=== PATIENT | female | born 1945 | race Two or more races ===

== ENCOUNTER 2018-08-14 16:14 | Inpatient (IN) | payer OTHER ==
[~2018-08-14] VITALS: Ht 154.9 cm; Wt 78.0 kg
[2018-08-14 16:43] LABS: BASOPHILS # (AUTO) 0.2 /CMM (0.0-0.2); BASOPHILS % (AUTO) 1.6 % (0.0-2.0); EOSINOPHILS % (AUTO) 2.9 % (0.0-6.0); HEMATOCRIT 31 % (33-45); HEMOGLOBIN 10.1 g/dL (11.5-14.8); LYMPHOCYTES # (AUTO) 3.5 /CMM (0.8-4.8); LYMPHOCYTES % (AUTO) 23.2 % (20.0-44.0); MEAN CORPUSCULAR HGB CONC 32 g/dl (31.0-36.0); MEAN CORPUSCULAR VOLUME 98 fL (82-100); MONOCYTES # (AUTO) 1.2 /CMM (0.1-1.30); MONOCYTES % (AUTO) 7.9 % (2.0-12.0); NEUTROPHILS # (AUTO) 9.6 /CMM (1.8-8.9); NEUTROPHILS % (AUTO) 64.4 % (43.0-81.0); PLATELET COUNT (AUTO) 137 /CMM (150-450); RED BLOOD CELL COUNT(AUTO) 3.22 MIL/uL (4.0-5.2); WHITE BLOOD COUNT (AUTO) 14.9 K/uL (4.3-11.0)
--- NOTE | 2018-08-14 16:45 | NUR ---
RT NOTE RECEIVED PT VIA AMBULANCE WITH A CHIEF COMPLAINT OF CLOGGED CATHETER, PT ON NO APPARENT RESPIRATORY DISTRESS. ALARMS ON AND AUDIBLE, TRACH PATENT AND SECURE. PT STABLE WILL CONTINUE TO MONITOR CLOSELY
[2018-08-14 16:52] LABS: CALCIUM, SERUM 9.2 mg/dL (8.5-10.1); CARBON DIOXIDE 26 mmol/L (21-32); CHLORIDE 100 mmol/L (98-107); CREATININE 1.9 mg/dL (0.6-1.3); GLUCOSE 130 mg/dL (74-106); SODIUM SERUM 137 mmol/L (136-145); UREA NITROGEN, BLOOD 70 mg/dL (7-18)
[2018-08-14 16:53] LABS: POTASSIUM 2.8 mmol/L (3.5-5.1)
[2018-08-14] MEDS ORDERED: ALPR0.25 GT (17:23)
[2018-08-14] MEDS ORDERED: METO50TA16 PO (17:23)
[2018-08-14] MEDS ORDERED: SIME40DR2 GT (17:23)
[2018-08-14] MEDS ORDERED: FAMO20TA8 GT (17:23)
[2018-08-14] MEDS ORDERED: ASCO500W7 GT (17:23)
[2018-08-14] MEDS ORDERED: FERR300L GT (17:23)
[2018-08-14] MEDS ORDERED: NUT.237L67 GT (17:23)
[2018-08-14] MEDS ORDERED: ATOR10TA GT (17:23)
[2018-08-14] MEDS ORDERED: LEVO50TA8 GT (17:23)
[2018-08-14] MEDS ORDERED: TAMS-12 GT (17:23)
[2018-08-14] MEDS ORDERED: AMIN30LI2 GT (17:23)
[2018-08-14] MEDS ORDERED: TRAM50TA2 GT (17:23)
[2018-08-14] MEDS ORDERED: ALLA266C2 TP (17:23)
[2018-08-14] MEDS ORDERED: ACET650S26 GT (17:23)
[2018-08-14] MEDS ORDERED: SENN-168 GT (17:23)
[2018-08-14] MEDS ORDERED: ACID1TAB12 GT (17:23)
[2018-08-14] MEDS ORDERED: METO-295 GT (17:23)
[2018-08-14] MEDS ORDERED: GABA-534 GT (17:23)
[2018-08-14] MEDS ORDERED: HEPA100D33 SQ (17:23)
[2018-08-14] MEDS ORDERED: FOLI0.8T2 GT (17:23)
[2018-08-14] MEDS ORDERED: SERT50TA GT (17:23)
[2018-08-14] MEDS ORDERED: ASCO500T9 GT (17:23)
[2018-08-14] MEDS ORDERED: BISA-79 GT (17:23)
[2018-08-14] MEDS ORDERED: NYST15PO4 TP (17:23)
[2018-08-14] MEDS ORDERED: METO25TA6 GT (17:23)
[2018-08-14] MEDS ORDERED: *INS HUMA SQ (17:23)
[2018-08-14] MEDS ORDERED: HEPA50008 SQ (17:34)
--- NOTE | 2018-08-14 18:21 | NUR ---
REPORT GIVEN TO NIKKI BETANCOURT FOR SUHAIL; PT WILL BE TRANSPORTED TO 1ST FLOOR VIA [facility]S PROTOCOL
[2018-08-14] MEDS ORDERED: SIMETHICONE 80 MG TAB.CHEW GT PRN (19:00)
[2018-08-14] MEDS ORDERED: BISACODYL (5 MG) 5 MG TABLET.DR GT PRN (19:00)
[2018-08-14] MEDS ORDERED: MAGNESIUM HYDROXIDE 30 ML UDC PO PRN (19:00)
[2018-08-14] MEDS ORDERED: ZOLPIDEM TARTRATE 5 MG TABLET PO PRN (19:00)
[2018-08-14] MEDS ORDERED: Z GUARD REMEDY 2 OZ OINT TP PRN (19:00)
[2018-08-14] MEDS ORDERED: ACETAMINOPHEN 325 MG TABLET PO PRN (19:00)
[2018-08-14] MEDS ORDERED: MAG HYDROX/AL HYDROX/SIMETH 30 ML UDC PO PRN (19:00)
[2018-08-14] MEDS ORDERED: HYDROCODONE/APAP 5/325MG 1 EACH TABLET PO PRN (19:00)
[2018-08-14] MEDS ORDERED: TRAMADOL HCL 50 MG TABLET GT PRN (19:00)
[2018-08-14] MEDS ORDERED: ONDANSETRON HCL/PF 4 MG/2 ML VIAL IVP PRN (19:00)
[2018-08-14 20:57] VITALS: BP 109/59
[2018-08-14] MEDS: METOPROLOL TARTRATE 25 MG TABLET GT SCH (21:00)
[2018-08-14] MEDS: HEPARIN SODIUM, PORCINE 5000 UNITS/1 ML VIAL SQ SCH (21:38)
[2018-08-14] MEDS: TAMSULOSIN 0.4 MG CAP.SR.24H GT SCH (21:39)
[2018-08-14] MEDS: ATORVASTATIN 10 MG TABLET GT SCH (21:39)
[2018-08-15] VITALS (9 sets, daily range): BP systolic 97–153; BP diastolic 56–67
[2018-08-15] MEDS: HEPARIN SODIUM, PORCINE 5000 UNITS/1 ML VIAL SQ SCH ×3 (05:12→22:01)
[2018-08-15] MEDS ORDERED: SERTRALINE HCL 50 MG TABLET GT SCH (06:00)
[2018-08-15] MEDS ORDERED: LEVOTHYROXINE SODIUM 50 MCG TABLET GT SCH (06:00)
--- NOTE | 2018-08-15 07:00 | NUR ---
CHORE TENDER INITIAL NOTES PT RECEIVED IN BED, ON VENT TOLERATING SETTINGS. RT AT BEDSIDE. PT IS ALERT AND ABLE TO MOUTH WORDS. [place] SPEAKING BUT UNDERSTANDS SOME BULGARIAN. RAC #20 IV NO S/SX OF INFECTION. ON TELE SR. BED IN LOCKED/LOWEST POSITION. CALL LIGHT IN REACH. WILL CONT TO MONITOR.
[2018-08-15] MEDS ORDERED: NEPRO 1,000 ML BOTTLE GT PRN (07:30)
[2018-08-15 08:11] LABS: BASOPHILS # (AUTO) 0.1 /CMM (0.0-0.2); BASOPHILS % (AUTO) 0.7 % (0.0-2.0); EOSINOPHILS % (AUTO) 2.7 % (0.0-6.0); HEMATOCRIT 30 % (33-45); HEMOGLOBIN 9.8 g/dL (11.5-14.8); LYMPHOCYTES % (AUTO) 33.3 % (20.0-44.0); MEAN CORPUSCULAR HGB CONC 33 g/dl (31.0-36.0); MEAN CORPUSCULAR VOLUME 97 fL (82-100); MONOCYTES # (AUTO) 0.6 /CMM (0.1-1.30); NEUTROPHILS # (AUTO) 5.1 /CMM (1.8-8.9); NEUTROPHILS % (AUTO) 56.3 % (43.0-81.0); PLATELET COUNT (AUTO) 217 /CMM (150-450); RED BLOOD CELL COUNT(AUTO) 3.09 MIL/uL (4.0-5.2); WHITE BLOOD COUNT (AUTO) 9.1 K/uL (4.3-11.0)
[2018-08-15] MEDS: GABAPENTIN 300 MG CAPSULE GT SCH ×2 (08:30→16:49)
[2018-08-15] MEDS: SENNOSIDES 8.6 MG TABLET GT SCH ×2 (08:30→16:36)
[2018-08-15] MEDS: ACIDOPHILUS/BULGARICUS 1 EACH TAB.CHEW GT SCH ×2 (08:30→16:49)
[2018-08-15] MEDS: FAMOTIDINE (20 MG) 20 MG TABLET GT SCH ×2 (08:30→16:49)
[2018-08-15] MEDS: FERROUS SULFATE UDC 300 MG/5 ML UDC GT SCH ×2 (08:30→16:49)
[2018-08-15] MEDS: METOPROLOL TARTRATE 25 MG TABLET GT SCH ×2 (08:31→22:01)
[2018-08-15 08:36] LABS: CHOLESTEROL 129 mg/dL (<200); LDL 59 mg/dL (0-99); TRIGLYCERIDES 340 mg/dL (30-150)
[2018-08-15 08:38] LABS: CALCIUM, SERUM 10.2 mg/dL (8.5-10.1); CARBON DIOXIDE 26 mmol/L (21-32); CHLORIDE 100 mmol/L (98-107); CREATININE 1.7 mg/dL (0.6-1.3); GLUCOSE 104 mg/dL (74-106); MAGNESIUM 2.2 mg/dL (1.8-2.4); PHOSPHORUS 3.1 mg/dL (2.5-4.9); SODIUM SERUM 138 mmol/L (136-145); UREA NITROGEN, BLOOD 72 mg/dL (7-18)
[2018-08-15] MEDS: PROSOURCE / PROSTAT (PYXIS) 30 ML UDC GT SCH ×3 (08:41→16:50)
[2018-08-15 08:48] LABS: POTASSIUM 2.5 mmol/L (3.5-5.1)
--- NOTE | 2018-08-15 08:50 | NUR ---
WOUND CARE CONSULT: PT PRESENTS WITH SACRAL SCARRING WHICH EXTENDS TO BILATERAL BUTTOCKS, PRESENT ON ADMISSION. PT IS VENT-DEPENDENT. RECOMMENDATIONS MADE FOR SKIN PROTECTION. DISCUSSED WITH NURSING STAFF. PT ON SOLO ISOFLEX LOW AIRLOSS BED. PT ABLE TO ASSIST WITH TURNING AND REPOSITIONING IN BED. WILL SEE PRN. WISEMAN IN AGREEMENT WITH PLAN OF CARE. CURRENT MARY LOU SCORE IS 14. Addendum: 08/15/18 at 0852 by GORDO WEST WNDNU Amended: Links added.
[2018-08-15] MEDS ORDERED: VIT B CMPLX 3/FA/VIT C/BIOTIN 1 TAB TABLET GT SCH (09:00)
[2018-08-15] MEDS ORDERED: ASCORBIC ACID 500 MG TABLET GT SCH (09:00)
[2018-08-15] MEDS ORDERED: NYSTATIN TOP POWDER 15 GM BOTTLE TP SCH (09:00)
[2018-08-15] MEDS ORDERED: Z GUARD REMEDY 2 OZ OINT TP SCH (09:00)
[2018-08-15 09:01] LABS: HDL CHOLESTEROL 39 mg/dL (40-60)
--- NOTE | 2018-08-15 09:41 | NUR ---
STATION CASHIER NOTES NOTIFIED DR GARCIA OF PT'S CRITICAL LOW POTASSIUM 2.5. ORDERED 40MEQ POTASSIUM REPLACEMENT PO ONCE.
[2018-08-15] MEDS ORDERED: POTASSIUM CHLORIDE 20 MEQ TAB.PRT.SR PO ONE (10:00)
[2018-08-15] MEDS ORDERED: ALTEPLASE CATHFLO 2 MG/VIAL IV ONE (10:00)
--- NOTE | 2018-08-15 10:04 | NUR ---
J2EE APPLICATION DEVELOPER NOTES PER OMID, HD NURSE, ALREADY GAVE PT ALTEPLASE AND SPOKE TO DR GARCIA THIS MORNING.
--- NOTE | 2018-08-15 19:27 | NUR ---
TIMEKEEPING SUPERVISOR NOTES PT IN BED, RESTING NO S/SX OF RESP DISTRESS. PER CM, DIOR BRYAN WILL CALL FOR REPORT AND TO ARRANGE TRANSPORTATION. ENDORSED TO PM NURSE FOR SUHAIL.
--- NOTE | 2018-08-15 19:30 | NUR ---
RT PT RECEIVED AWAKE, ALERT, AND ABLE TO MOUTH WORDS AND IS TRACHED ON [facility] VENT ON CHARTED SETTINGS. NO SIGNS OF DISTRESS AT THIS TIME. AIRWAY PATENT AND SECURED. PT SUCTIONED. ALARMS ARE SET AND AUDIBLE. AMBUBAG AT [facility]. VENT CONNECTED TO RED OUTLET. WILL CONT TO MONITOR. Addendum: 08/15/18 at 2009 by DOROTA SAMUELS RT Amended: Links added.
--- NOTE | 2018-08-15 19:45 | NUR ---
SPRING/DIRECTOR OF SUSTAINABILITY PROGRAMS RECEIVED REPORT FROM DAY NURSE. SEE FLOWSHEET FOR ASSESSMENT ALONG WITH ANY AND ALL SKIN ISSUES WHICH ARE ADDRESSES ALONG WITH EACH INTERVENTIONS. PT IS CURRENTLY VENTED WITH SATURATION AT 100%. PT IS HEPLOCK . PT WS TURNED AND REPOSITIONED FOR COMFORT AND CARE. WILL CONTINUE TO MONITOR THIS PT. NO ACUTE DISTRESS SEEN AT THIS TIME.
[2018-08-15] MEDS: ATORVASTATIN 10 MG TABLET GT SCH (22:02)
[2018-08-15] MEDS: TAMSULOSIN 0.4 MG CAP.SR.24H GT SCH (22:02)
--- NOTE | 2018-08-15 23:06 | NUR ---
SPRING/CONTACT CENTER REP PT IS DISCHARGE TO [facility] FOR INSURANCE PURPOSES. REPORT GIVEN TO ROXI AT [facility] PT GOING TO ROOM 1311, PHONE NUMBER IS [phone]. REPORT GIVEN TO AMBULANCE SERVICE RN
== END 2018-08-15 23:35 | disposition short-term general hospital (02) | DRG 314 ==
LOC: ER 16:14 → TELE1 19:39
PROVIDERS: ADMIT Student in an Organized Health Care Education/Training Program; ATTEND Student in an Organized Health Care Education/Training Program
PROC: 5A1935Z Respiratory Ventilation, Less than 24 Consecutive Hours (ICD-10-PCS; principal; 2018-08-14)
DX: T82.41XA Breakdown (mechanical) of vascular dialysis catheter, initial encounter (principal); N18.6 End stage renal disease; I12.0 Hypertensive chronic kidney disease with stage 5 chronic kidney disease or end stage renal disease; E66.2 Morbid (severe) obesity with alveolar hypoventilation; J96.11 Chronic respiratory failure with hypoxia; Z99.11 Dependence on respirator [ventilator] status; C85.90 Non-Hodgkin lymphoma, unspecified, unspecified site; Y71.2 Prosthetic and other implants, materials and accessory cardiovascular devices associated with adverse incidents; Y92.009 Unspecified place in unspecified non-institutional (private) residence as the place of occurrence of the external cause; Z99.2 Dependence on renal dialysis; R13.10 Dysphagia, unspecified; Z93.0 Tracheostomy status; Z93.1 Gastrostomy status; E11.22 Type 2 diabetes mellitus with diabetic chronic kidney disease; E78.5 Hyperlipidemia, unspecified; E87.6 Hypokalemia; Z79.4 Long term (current) use of insulin; Z79.899 Other long term (current) drug therapy; D72.829 Elevated white blood cell count, unspecified; D63.8 Anemia in other chronic diseases classified elsewhere; Z86.73 Personal history of transient ischemic attack (TIA), and cerebral infarction without residual deficits; Z68.32 Body mass index [BMI] 32.0-32.9, adult; Z79.01 Long term (current) use of anticoagulants
CPT/HCPCS: 31720; 36415; 71045-TC; 80048-TC; 80061-TC; 82962-TC; 83735-TC; 84100-TC; 85025-TC; 87081-TC; 94002-TC; 94003-TC; 94760-TC; 94799-TC; G0378; J1644; J2997